=== PATIENT | female | born 1940 | race Caucasian/White ===

== ENCOUNTER 2017-09-15 18:58 | Emergency (ER) | payer OTHER ==
[~2017-09-15] VITALS: Ht 147.3 cm; Wt 54.4 kg
[~2017-09-15 18:58] MED LIST: ADULT LOW DOSE81 MG; ADVAIR 250-501 EACH INH; ALBUTEROL2.5 MG/3 M INH; ALENDRONATE SOD70 MG PO; ALEVE220 MG PO; ALLEGRA180 MG PO; AMBIEN 5 MG TABL5 M1; AMBIEN 5 MG TABL5 M1 PO; AMLODIPINE BESY10 MG PO; APAP500 PO; APAP650 PO; ARICEPT 5 MG TAB5 MG TRANSDERM; ARTIFICIAL TEAR15 M1 OPHTHALMIC; ASPIRIN EC81 M1 PO; ATIVAN0.5 MG PO; ATORVASTATIN CA40 MG PO; AUGMENTIN 875875 MG PO; AVELOX400 MG PO; AYR50 ML; BENADRYL25 MG PO; CALCIUM 600 +1 EAC1 PO; CALCIUM 600 +1 EAC5 PO; CEPACOL SORE T1 EAC7; CEPACOL SORE T1 EAC7 MM; CEPACOL SORE T1 EAC7 PO; CLARITIN10 MG PO; COLACE100 MG PO; COMBIVENT INH; COMPAZINE25 M1 RC; COMPAZINE25 M1 RECTAL; COMPRO25 MG RC; DALIRESP500 MCG PO; DEXAMETHASONE; DOXYCYCLINE 10100 MG PO; DUONEB 2.5-0.5 M3 ML INH; ENOXAPARIN30 MG/0.1 SUBQ; EXELON 9.5 MG9.5 MG TD; EXELON 9.5 MG9.5 MG TRANSDERM; EXELON1 EACH TD; FENTANYL PA12 MCG/H1 TRANSDERM; FERRO-TIME325 MG; FLEXERIL PO; FLONASE 0.05%50 MCG NASAL; FOSAMAX 70 MG T70 M1 PO; GERI-LANTA LIQ355 ML PO; GERI-MOX ANTAC355 ML PO; GLUCOPHAGE500 MG PO; HYDROCHLOROTH12.5 MG PO; HYDROCODON-ACE1 EAC7 PO; IPRAT-ALBUT 0.5-3 ML IH; K-DUR 20 MEQ T20 MEQ PO; LANTUS SUBQ; LASIX 40 MG TAB40 M2 PO; LEVEMIR SUBQ; LIDODERM 5%1 PATCH TRANSDERM; LIORESAL 10 MG10 MG PO; LIPITOR40 MG PO; MAGOX 400400 MG PO; MELATONIN3 MG PO; METFORMIN HCL500 MG PO; METOPROLOL SUCC25 M1 PO; MI ACID LIQUID355 ML PO; MUCINEX600 MG PO; MUCUS PO; MURO-128 OPHTH3.5 G1 OPHTHALMIC; NASAL SPRAY30 M3; NEXIUM40 MG PO; NITROSTAT0.4 MG SUBLING; NORCO 5-325 TA1 EACH PO; NORVASC 5 MG TAB5 MG PO; OMEPRAZOLE40 MG PO; ONDANSETRON HCL4 M3 PO; OXYCODONE HCL10 MG PO; OXYCONTIN10 M1 PO; PERCOCET 5-3251 EACH PO; PHENADOZ25 MG RC; POTASSIUM CHLO20 MEQ PO; PRED FORTE 1% EY5 M1 OP; PREDNISONE 10 M10 M1 PO; PRILOSEC 20 MG20 MG PO; PROAIR HFA8.5 GM INH; REFRESH OPTIVE1 EAC1 OP; REFRESH OPTIVE10 ML; RESTORIL15 MG PO; ROBITUSSIN100 MG/53; SERTRALINE HCL100 MG PO; SERTRALINE HCL50 MG PO; SINGULAIR 10 MG10 M1 PO; SORE THROAT LO1 EAC3 MM; SPIRIVA INH; SPIRIVA18 MCG INH; TRAMADOL 50 MG50 MG PO; TRAVATAN Z2.5 ML OPHTHALMIC; TYLENOL325 MG PO; UNICOMPLEX M TA1 TA1 PO; VENTOLIN HFA 1818 GM INH; ZANTAC 150MG T150 M1 PO; ZOFRAN4 MG PO
[2017-09-15] MEDS ORDERED: TRAMADOL 50 MG50 MG PO (20:45)
== END 2017-09-15 21:12 | disposition home or self-care (01) ==
LOC: ER 18:58
DX: S00.12XA Contusion of left eyelid and periocular area, initial encounter (principal); J44.9 Chronic obstructive pulmonary disease, unspecified; F32.9 Major depressive disorder, single episode, unspecified; I10 Essential (primary) hypertension; K21.9 Gastro-esophageal reflux disease without esophagitis; M81.0 Age-related osteoporosis without current pathological fracture; E11.9 Type 2 diabetes mellitus without complications; G89.29 Other chronic pain; M54.9 Dorsalgia, unspecified; G47.30 Sleep apnea, unspecified; I73.9 Peripheral vascular disease, unspecified; G30.9 Alzheimer's disease, unspecified; F02.80 Dementia in other diseases classified elsewhere, unspecified severity, without behavioral disturbance, psychotic disturbance, mood disturbance, and anxiety; Z88.8 Allergy status to other drugs, medicaments and biological substances; Z87.891 Personal history of nicotine dependence; W01.190A Fall on same level from slipping, tripping and stumbling with subsequent striking against furniture, initial encounter; Y93.02 Activity, running; Y92.89 Other specified places as the place of occurrence of the external cause; Y99.8 Other external cause status

== ENCOUNTER → 2018-02-11 | Outpatient (CLI) | payer OTHER ==
[~2018-02-11] MED LIST changes: +ASPIRIN325 PO; +AUGMENTIN 500-1 EACH PO; +B12INJ IM; +CARAFATE 1 GM TA1 G1 PO; +DURAGESIC25 MCG/HR TRANSDERM; +HYDROCODONE-AP1 EAC6 PO; +HYDROCORTISONE120 M1 TOP; +IRON325 PO; +ONDANSETRON HCL4 M2 PO; +OXYCODONE HCL 55 MG PO; +PREDNISONE 20 M20 MG PO; +TESSALON PERLE100 M1 PO; +TRAZODONE HCL100 MG PO
[2018-02-11 16:09] LABS: BE(vivo) -3.1 mmol/L (-2 to +3); PCO2 34.9 mmHg (35.0-45.0); PO2 69.1 mmHg (80.0-100.0); pH 7.398 (7.360-7.450)
== END ==
LOC: RAD 15:11
PROVIDERS: Internal Medicine Pulmonary Disease
DX: I51.7 Cardiomegaly (principal); J44.9 Chronic obstructive pulmonary disease, unspecified; I50.9 Heart failure, unspecified; K21.9 Gastro-esophageal reflux disease without esophagitis; E11.9 Type 2 diabetes mellitus without complications; Z79.4 Long term (current) use of insulin

== ENCOUNTER 2018-03-08 11:30 | Emergency (ER) | payer OTHER ==
[~2018-03-08] VITALS: Ht 149.9 cm; Wt 61.7 kg
--- NOTE | ~2018-03-08 | EKG ---
[address] [address] ELECTROCARDIOGRAM REPORT Name: GOYO ROBERTS Room #: [facility]#: [id number] Admission: 03/08/18 Attend Phys: Discharge: 03/08/18 Date of : 38 Report #: [id number] THIS REPORT FOR: //name// [facility] ED Test Date: 2018-03-08 Test Time: 12:27:06 Pat Name: GOYO ROBERTS Department: Room: Gender: F Junior Recruiter: LISA : 1940 Requested By: Hussain Su Order Number: [id number] MD: Gilberto Jordan Measurements Intervals [place] Rate: 97 P: 24 ND: 121 QRS: -31 QRSD: 88 T: -22 QT: 379 QTc: 482 Interpretive Statements Sinus rhythm Inferior infarct, age indeterminate Poor R wave progression Nonspecific T wave abnormality Baseline wander in lead(s) V5 Compared to ECG 11/08/2017 11:42:39 Poor R wave progression is more prominent Electronically Signed On 03-09-2018 8:03:35 [employer] by Gilberto Jordan [email or web address] <ELECTRONICALLY SIGNED> By: Gilberto Jordan MD, [facility] 03/09/18 0803 1227 1227 Gilberto Jordan MD, [facility] /EPI
[2018-03-08 13:03] LABS: ABSOLUTE NEUTROPHILS 7.8 thou/uL (1.4-8.2); BASOPHILS 0.5 % (0.0-2.0); EOSINOPHILS 0.3 % (0.0-3.0); HEMOGLOBIN 14.3 gm/dL (12.0-15.0); LYMPHOCYTES 9.5 % (24.0-44.0); MCH 30.5 pg (26.0-34.0); MCHC 34.1 g/dL (28.0-37.0); MCV 89.6 fL (80.0-100.0); PLATELET COUNT 192 thou/uL (150-400); POLYS 82.7 % (36.0-66.0); RBC 4.69 mil/uL (4.20-5.00); RDW 15.5 % (10.5-14.5); WBC 9.5 thou/uL (4.0-11.0)
[2018-03-08 13:07] LABS: CREATININE 0.7 mg/dL (0.6-1.0); POTASSIUM 4.3 mmol/L (3.5-5.1)
[2018-03-08 13:13] LABS: ALBUMIN 3.8 g/dL (3.4-5.0); TOTAL PROTEIN 7.3 g/dL (6.4-8.2)
[2018-03-08 14:08] LABS: URINE BILIRUBIN 1+ (Negative); URINE BLOOD 1+ (Negative); URINE CLARITY CLEAR; URINE COLOR YELLOW; URINE GLUCOSE-RANDOM* NEGATIVE (Negative); URINE KETONES 3+ (Negative); URINE NITRITE-REFLEX NEGATIVE (Negative); URINE PROTEIN (DIPSTICK) 1+ (Negative); URINE SPECIFIC GRAVITY >= 1.030 (1.005-1.035); URINE UROBILINOGEN 0.2 E.U./dl (0.2-1.0)
[2018-03-08 14:11] LABS: URINE LEUKOCYTES-REFLEX TRACE (Negative)
[2018-03-08 14:21] LABS: MUCUS >6 Heavy strn/LPF (None Seen); SQUAMOUS >10 Many /LPF (0-3)
[2018-03-08 14:22] LABS: CASTS None Seen /LPF (None Seen); CRYSTALS None Seen /LPF (None Seen)
[2018-03-08 14:23] LABS: URINE RBC 3-10 Few /HPF (0-2); URINE WBC-REFLEX 6-15 Few /HPF (0-5)
[2018-03-08] MEDS ORDERED: ASPIR 8181 MG PO (15:37)
[2018-03-08] MEDS ORDERED: DURAGESIC1 EAC4 TOP (15:41)
[2018-03-08] MEDS ORDERED: MILK OF MA2400 MG/10 PO (15:45)
[2018-03-08] MEDS ORDERED: BISACODYL SUPP10 MG RECTAL (15:45)
[2018-03-08] MEDS ORDERED: ZOFRAN ODT8 MG PO (16:14)
[2018-03-08 16:37] VITALS: BP 153/82
== END 2018-03-08 16:30 | disposition home or self-care (01) ==
LOC: ER 11:30
PROVIDERS: Emergency Medicine
DX: R11.0 Nausea (principal); Z87.891 Personal history of nicotine dependence; Z88.4 Allergy status to anesthetic agent; Z90.710 Acquired absence of both cervix and uterus; J44.9 Chronic obstructive pulmonary disease, unspecified; F32.9 Major depressive disorder, single episode, unspecified; I10 Essential (primary) hypertension; K21.9 Gastro-esophageal reflux disease without esophagitis; M81.0 Age-related osteoporosis without current pathological fracture; I73.9 Peripheral vascular disease, unspecified; E11.9 Type 2 diabetes mellitus without complications; G47.30 Sleep apnea, unspecified; M54.9 Dorsalgia, unspecified; G89.29 Other chronic pain; G30.9 Alzheimer's disease, unspecified; F02.80 Dementia in other diseases classified elsewhere, unspecified severity, without behavioral disturbance, psychotic disturbance, mood disturbance, and anxiety; Z79.4 Long term (current) use of insulin